=== PATIENT | female | born 1950 | race Caucasian/White ===

== ENCOUNTER → 2019-04-15 16:10 | Outpatient (CLI) | payer OTHER, SELFPAY ==
[2019-04-15 17:20] LABS: Add Manual Diff / Slide Review NO; Basophils Absolute Auto 0 /uL (0-100); Basophils Percent Auto 0.3 % (0-2); Eosinophils Absolute Auto 100 /uL (0-450); Eosinophils Percent Auto 1.3 % (2-4); Hematocrit 35.2 % (36-46); Hemoglobin 11.7 g/dL (12.0-16.0); Lymphocytes Absolute Auto 2200 /uL (1100-4500); Mean Corpuscular HGB Conc 33.2 % (30-36); Mean Corpuscular Hemoglobin 30.8 PG (26-34); Mean Corpuscular Volume 92.9 fL (80-100); Monocytes Absolute Auto 600 /uL (0-900); Monocytes Percent Auto 8.5 % (3-14); Neutrophils Absolute Auto 3700 /uL (1500-7000); Neutrophils Percent Auto 56.9 % (50-75); Platelet Count 287 X10^3/uL (150-400); Red Blood Cell Count 3.79 X10^6/uL (4.0-5.2); Red Cell Distribution Width 13.5 % (11.6-14.8); White Blood Cell Count 6.5 X10^3/uL (4.5-11.0)
[2019-04-15 18:08] LABS: Alanine Aminotransferase 38 IU/L (<35); Albumin Globulin Ratio 1.5 (1.0-2.8); Alkaline Phosphatase 56 U/L (38-126); Aspartate Aminotransferase 44 IU/L (14-36); BUN Creatinine Ratio 18.1 (6-22); Bilirubin Total 0.4 mg/dL (0.2-1.3); Blood Urea Nitrogen 13 mg/dL (7-17); Calcium 9.3 mg/dL (8.4-10.2); Carbon Dioxide 27 mmol/L (22-32); Chloride 105 mmol/L (98-107); Estimated Glomerular Filt Rate > 60.0 mL/min (>60); Globulin 2.6 g/dL (1.7-4.1); Glucose 92 mg/dL (80-110); HEMOLYSIS < 15 (0-50); Potassium 4.4 mmol/L (3.4-5.1); Sodium 139 mmol/L (137-145); Total Protein 6.6 g/dL (6.3-8.2)
[2019-04-15 18:32] LABS: Clostridium Difficile Tox PCR Negative for C. diff
== END ==
PROVIDERS: PCP Internal Medicine; Referring Provider Internal Medicine; Visit Provider Internal Medicine
DX: K52.9 Noninfective gastroenteritis and colitis, unspecified (principal)
CPT/HCPCS: 36415; 80053; 85025; 87493

== ENCOUNTER → 2019-04-21 11:58 | Outpatient (CLI) | payer OTHER, SELFPAY ==
[2019-04-21 13:11] LABS: HEMOLYSIS < 15 (0-50); Iron 63 ug/dL (37-170)
[2019-04-21 13:22] LABS: Percent Iron Saturation 26 % (15-50); Total Iron Binding Capacity 240 ug/dL (265-497); Transferrin 203 mg/dL (206-381)
== END ==
PROVIDERS: PCP Internal Medicine; Referring Provider Internal Medicine; Visit Provider Internal Medicine
DX: D64.9 Anemia, unspecified (principal)
CPT/HCPCS: 36415; 83540; 83550

== ENCOUNTER → 2019-04-25 14:20 | Outpatient (CLI) | payer OTHER, SELFPAY ==
[2019-04-25 16:19] LABS: Thyroid Stimulating Hormone 1.62 uIU/mL (0.47-4.68)
== END ==
PROVIDERS: PCP Internal Medicine; Referring Provider Internal Medicine; Visit Provider Internal Medicine
DX: D64.9 Anemia, unspecified (principal)
CPT/HCPCS: 36415; 84443

== ENCOUNTER → 2019-06-10 08:33 | Outpatient (CLI) | payer OTHER, SELFPAY ==
[2019-06-10 10:11] LABS: Add Manual Diff / Slide Review NO; Basophils Absolute Auto 0 /uL (0-100); Basophils Percent Auto 0.8 % (0-2); Eosinophils Absolute Auto 100 /uL (0-450); Hematocrit 37.1 % (36-46); Hemoglobin 12.6 g/dL (12.0-16.0); Lymphocytes Absolute Auto 2000 /uL (1100-4500); Lymphocytes Percent Auto 41.2 % (25-40); Mean Corpuscular HGB Conc 33.9 % (30-36); Mean Corpuscular Hemoglobin 31.4 PG (26-34); Mean Corpuscular Volume 92.8 fL (80-100); Monocytes Absolute Auto 300 /uL (0-900); Monocytes Percent Auto 7.1 % (3-14); Neutrophils Absolute Auto 2400 /uL (1500-7000); Neutrophils Percent Auto 48.9 % (50-75); Platelet Count 292 X10^3/uL (150-400); Red Cell Distribution Width 13.4 % (11.6-14.8); White Blood Cell Count 4.9 X10^3/uL (4.5-11.0)
[2019-06-10 11:06] LABS: Alanine Aminotransferase 26 IU/L (<35); Albumin 4.5 g/dL (3.5-5.0); Albumin Globulin Ratio 1.6 (1.0-2.8); Alkaline Phosphatase 55 U/L (38-126); Aspartate Aminotransferase 31 IU/L (14-36); Bilirubin Total 0.3 mg/dL (0.2-1.3); Bilirubin Unconjugated 0.3 mg/dL (0.0-1.1); Globulin 2.8 g/dL (1.7-4.1); HEMOLYSIS < 15 (0-50); Total Protein 7.3 g/dL (6.3-8.2)
== END ==
PROVIDERS: PCP Internal Medicine; Referring Provider Internal Medicine; Visit Provider Internal Medicine
DX: D64.9 Anemia, unspecified (principal); R74.8 Abnormal levels of other serum enzymes
CPT/HCPCS: 36415; 80076; 85025

== ENCOUNTER → 2019-06-29 10:56 | Outpatient (CLI) | payer OTHER, SELFPAY ==
[2019-06-30 08:42] LABS: COVID19 Sendout NOT DETECTED (Not Detect)
== END ==
PROVIDERS: PCP Internal Medicine; Visit Provider Physician Assistant
DX: Z01.818 Encounter for other preprocedural examination (principal)
CPT/HCPCS: 87635

== ENCOUNTER 2019-07-02 10:58 | Day surgery (SDC) | payer OTHER, SELFPAY ==
--- NOTE | 2019-07-02 | PATH_ITS ---
[facility] Accession Number: [id number] . 01 Material submitted: . PART A: colon - FLAT POLYP IN COLON AT 30 CM PART B: colon - COLON POLYP AT 25 CM PART C: rectum - COLON POLYP IN RECTUM AT 18 CM . 02 Diagnosis: A. Colon, Flat Polyp At 30 CM, Biopsy: Hyperplastic polyp. . B. Colon, Polyp At 25 CM, Biopsy: Hyperplastic polyp. . C. Colon, Polyp In Rectum At 18 CM, Biopsy: Hyperplastic polyp. [facility] 07/03/2019 1309 Local . 02 Electronically signed: . Daisha Allen MD, Pathologist NPI- [id number] . 01 Gross description: . Part A: FLAT POLYP IN COLON AT 30 CM: Received in formalin is 1 fragment(s) of arrieta, soft tissue measuring 0.3 x 0.3 x 0.3 cm submitted entirely in 1 cassette(s) Part B: COLON POLYP AT 25 CM: Received in formalin is 1 fragment(s) of arrieta, soft tissue measuring 0.3 x 0.2 x 0.2 cm submitted entirely in 1 cassette(s) Part C: COLON POLYP IN RECTUM AT 18 CM: Received in formalin is 1 fragment(s) of arrieta, soft tissue measuring 0.2 x 0.2 x 0.2 cm submitted entirely in 1 cassette(s) /RADHA 07/02/20192051 Local . 02 Pathologist provided ICD-10: K63.5 . 02 CPT . 983156, 668763, 270386 Performed at: [address] [facility], [place], [place] [id number] MD John Tse MD Phone: [phone] Performed at: [facility] [id number] [place] [id number] MD Daisha Allen MD Phone: [phone]
[2019-07-02 11:28] VITALS: BMI 27.8
[2019-07-02 11:42] VITALS: BP 111/76; PULSE 81; RESP 12; TEMP 37.2; O2SAT 98
[2019-07-02] MEDS: SODIUM CHLORIDE 0.9% 1,000 ML 200 ML IV (11:43)
--- NOTE | 2019-07-02 12:15 | PM.PREOP ---
Pre-operative Note COVID-19 COVID-19 status: Negative Result date/Date tested (Pos, Neg/Pending): 06/29/19 Interval Note History & Physical reviewed/Exam performed by Physician: No Changes to H&P: No H&P completed within 30 days and has changed as indicated here:: Due to this patient's anemia, unexplained weight loss, fatigue, and positive cologuard she is high risk for a colon cancer to be found during today's procedure and she is expected to need a prolonged and more complex procedure which may involve endoscopic resection of large cancerous or precancerous lesions. She is expected to be difficult to sedate due to her history of chronic pain from fibromyalgia. These patients tend to require high doses of versed and still can not keep still for the procedure. Because of this I have consulted Dr. Mustafa and asked him to provide monitored anesthesia care for the patient.
--- NOTE | 2019-07-02 13:04 | PM.OP.ENDO ---
Operative Date/Time/Diagnoses Date of procedure: 07/02/19 Time of procedure: 13:04 Pre-op diagnosis: Anemia, fatigue, unexplained weight loss, positive cologuard Post-op diagnosis: other (three flat polyps found at 35cm, 25cm, and 18cm; moderate diverticulosis with thickening of the sigmoid colon) Procedure & Clinicians Study performed: Colonoscopy with cold forceps polypectomy x 3 Same procedure as scheduled: Yes Indications: High risk for colon cancer due to positive cologuard test, anemia, fatigue, unexplained weight loss. Due to this being a high risk colonoscopy with possible prolonged and difficult procedure, as well as her history of fibromyalgia which makes her resistant to sedation, I consulted Dr. Mustafa of anesthesiology 2 provide monitored anesthesia care for the safety of the patient. Surgeon: Ashley Tompkins Procedure Notes SCOAP/Timeout: Performed Procedure in detail: The patient was brought to the room and placed in left lateral decubitus position with all bony prominences padded. A time-out was performed and then the patient was given procedural sedation by Dr. Mustafa. Once adequately sedated, the procedure was begun. A rectal exam was performed revealing [no abnormalities]. The colonoscope was then introduced to the rectum and advanced to the cecum in the usual fashion. []The cecum was identified by the appendiceal orifice, the mucosal tri-fold, and the ileocecal valve. The scope was then retracted while rotating side to side and examining each mucosal fold. [3 flat polyps were found in the rectosigmoid region. One was at 35 cm, 1 was at 25 cm, and 1 was at 18 cm. They were each around 1 cm in size, and were removed with cold forceps.] Moderate diverticulosis was seen throughout the descending and sigmoid colon. At the conclusion of the procedure retroflexion was performed and [small grade 1-2 internal hemorrhoids without stigmata of bleeding were seen]. The scope was then withdrawn from the rectum the procedure was concluded. The patient tolerated the procedure well and was transferred to the PACU in stable condition. Scope withdrawal time: 14 Findings: polyp (Three polyps) Specimen(s): other (Three polyps removed with cold forceps) Complications: none Impression: Three adenomatous appearing polyps. Post-procedure Recommendations: Colonscopy in 5 years (Depending on pathology results) Follow up: as needed Disposition: PACU
[2019-07-02 13:08] VITALS: BP 101/64; PULSE 79; RESP 14; TEMP 37; O2SAT 98
[2019-07-02 13:12] VITALS: BP 107/65; PULSE 79; RESP 13; O2SAT 98
[2019-07-02 13:17] VITALS: BP 116/69; PULSE 77; RESP 15; TEMP 35.8; O2SAT 100
[2019-07-02 13:22] VITALS: BP 112/71; PULSE 69; RESP 12; O2SAT 100
[2019-07-02 13:46] VITALS: BP 115/70; PULSE 62; RESP 16; TEMP 37.2; O2SAT 96
== END 2019-07-02 13:58 | disposition home or self-care (01) ==
PROVIDERS: PCP Internal Medicine; Referring Provider Surgery; Visit Provider Surgery
PROC: 0DJD8ZZ Inspection of Lower Intestinal Tract, Via Natural or Artificial Opening Endoscopic (ICD-10-PCS; CPT 45378; principal; 2019-07-02 14:15)
DX: K63.5 Polyp of colon (principal); D64.9 Anemia, unspecified; M79.7 Fibromyalgia; R63.4 Abnormal weight loss; K57.30 Diverticulosis of large intestine without perforation or abscess without bleeding; K64.0 First degree hemorrhoids; K62.1 Rectal polyp
CPT/HCPCS: 45380; J2704; J3010

== ENCOUNTER → 2019-07-16 13:21 | Outpatient (CLI) | payer OTHER, SELFPAY ==
[2019-07-16 15:10] LABS: Cholesterol 225 mg/dL (140-199); Triglycerides 48 mg/dL (35-150)
[2019-07-16 15:21] LABS: HDL Cholesterol 122 mg/dL (40-60); LDL Cholesterol Calculated 93 mg/dL (<100)
[2019-07-16 17:29] LABS: Hep C Virus Ab w/Reflex Quant NEGATIVE s/c (NEGATIVE)
[2019-07-17 06:36] LABS: SARS CoV19 IgG Negative (Negative)
== END ==
PROVIDERS: PCP Internal Medicine; Referring Provider Internal Medicine; Visit Provider Internal Medicine
DX: Z00.00 Encounter for general adult medical examination without abnormal findings (principal); E11.9 Type 2 diabetes mellitus without complications; Z03.818 Encounter for observation for suspected exposure to other biological agents ruled out
CPT/HCPCS: 36415; 80061; 86769; 86803

== ENCOUNTER → 2019-07-25 14:55 | Outpatient (CLI) | payer OTHER, SELFPAY | PROVIDERS: PCP Internal Medicine; Referring Provider Internal Medicine; Visit Provider Internal Medicine | DX: Z13.820 Encounter for screening for osteoporosis (principal); M81.0 Age-related osteoporosis without current pathological fracture; Z78.0 Asymptomatic menopausal state; E11.9 Type 2 diabetes mellitus without complications | CPT/HCPCS: 77080 ==

== ENCOUNTER → 2020-03-05 12:23 | Outpatient (CLI) | payer MEDICARE, SELFPAY ==
[2020-03-05] MEDS: COVID-19 VACC #1, MRNA(MOD) 100 MCG/0.5 ML VIAL IM (12:32)
== END ==
PROVIDERS: PCP Internal Medicine; Visit Provider Internal Medicine
DX: Z23 Encounter for immunization (principal)
CPT/HCPCS: 0011A; 91301

== ENCOUNTER → 2020-04-02 12:52 | Outpatient (CLI) | payer MEDICARE, SELFPAY ==
[2020-04-02] MEDS: COVID-19 VACC #2, MRNA(MOD) 100 MCG/0.5 ML VIAL IM (12:57)
== END ==
PROVIDERS: PCP Internal Medicine; Visit Provider Internal Medicine
DX: Z23 Encounter for immunization (principal)
CPT/HCPCS: 0012A; 91301

== ENCOUNTER 2020-07-09 12:08 | Emergency (ER) | payer OTHER, SELFPAY ==
[2020-07-09] VITALS (21 sets, daily range): BP systolic 99–153; BP diastolic 58–76; PULSE 70–89; RESP 12–16; TEMP 36.8; O2SAT 95–99; BMI 33.6
--- NOTE | 2020-07-09 12:18 | DI.RAD.S_ITS ---
PROCEDURE: XR CHEST 1V INDICATIONS: chest pain TECHNIQUE: One view of the chest was acquired. COMPARISON: None. FINDINGS: Surgical changes and devices: None. Lungs and pleura: Lungs are clear. No pleural effusions or pneumothorax. Mediastinum: Mediastinal contours appear normal. Heart size is normal. Bones and chest wall: No suspicious bony lesions. Overlying soft tissues appear unremarkable. IMPRESSION: No acute cardiopulmonary abnormalities or focal airspace disease. Dictated by: Javed Rizvi M.D. on 07/09/2020 at 13:19 Approved by: Javed Rizvi M.D. on 07/09/2020 at 13:22
[2020-07-09 12:23] LABS: Add Manual Diff / Slide Review NO; Basophils Absolute Auto 100 /uL (0-100); Basophils Percent Auto 1.1 % (0-2); Eosinophils Absolute Auto 100 /uL (0-450); Eosinophils Percent Auto 1.7 % (2-4); Hematocrit 40.6 % (36-46); Hemoglobin 13.8 g/dL (12.0-16.0); Lymphocytes Absolute Auto 2500 /uL (1100-4500); Lymphocytes Percent Auto 38.5 % (25-40); Mean Corpuscular HGB Conc 33.9 % (30-36); Mean Corpuscular Hemoglobin 31.3 PG (26-34); Mean Corpuscular Volume 92.6 fL (80-100); Monocytes Absolute Auto 500 /uL (0-900); Monocytes Percent Auto 7.6 % (3-14); Neutrophils Absolute Auto 3300 /uL (1500-7000); Neutrophils Percent Auto 51.1 % (50-75); Platelet Count 288 X10^3/uL (150-400); Red Blood Cell Count 4.39 X10^6/uL (4.0-5.2); Red Cell Distribution Width 13.8 % (11.6-14.8); White Blood Cell Count 6.5 X10^3/uL (4.5-11.0)
--- NOTE | 2020-07-09 12:29 | ED.CHESTPAIN ---
HPI - Chest Pain General Chief Complaint: Chest Pain Stated Complaint: upper left chest pain Time Seen by Provider: 07/09/20 12:14 Source: patient Mode of arrival: Ambulatory Limitations: no limitations History of Present Illness HPI narrative: Patient is a 70-year-old non insulin-dependent diabetic here for evaluation of left-sided chest discomfort and left back discomfort. She states she has had this discomfort off and on for at least the past couple weeks if not longer. She states that for the past couple days the symptoms have become more intense and happen more often. She had the discomfort last evening. She woke up this morning and felt like the symptoms had improved somewhat but has worsened since this morning. Does not get worse with palpation or movement. Has no shortness of breath. She states that her discomfort has not seem to change because of exercise. It is happened when she has been sitting and also moving around. She did have a stress test and echocardiogram approximately 2 years ago. She states that this was because she was having some breathing issues in the symptoms that brought her in today are slightly different than that. She is also having other complaints such as swelling of her eyes. She did take aspirin this morning. Related Data Home Medications Medication Instructions Recorded Confirmed lactobacillus combination no.8 3 3,000 mmu cells PO DAILY 06/12/19 07/02/19 billion cell capsule Stress Formula 1 tab PO DAILY 07/02/19 07/02/19 Allergies Allergy/AdvReac Type Severity Reaction Status Date / Time No Known Drug Allergies Allergy Verified 07/02/19 11:25 Review of Systems Constitutional Constitutional: Denies fever(s) and Denies headache(s) Eyes Comments: Swelling around eyes ENT Ears, Nose, Mouth, and Throat: Denies headache(s), Denies neck pain and Denies sore throat Cardiovascular Cardiovascular: Reports chest pain and Denies dyspnea Respiratory Respiratory: Denies dyspnea Gastrointestinal Gastrointestinal: Denies abdominal pain, Denies nausea and Denies vomiting Musculoskeletal Musculoskeletal: Denies neck pain Integumentary/Breasts Skin/Breast: Denies rash Neurologic Neurologic: Denies behavioral changes and Denies headache(s) Psychiatric Psychiatric: Reports system reviewed and no additional complaints, except as documented and Denies behavioral changes Endocrine Endocrine: Reports system reviewed and no additional complaints, except as documented Hematologic/Lymphatic On Anticoagulants: No Allergic/Immunologic Allergic/Immunologic: Reports system reviewed and no additional complaints, except as documented Patient History Medical History Arthritis Constipation Fibromyalgia Prediabetes Skin cancer Social History Smoking Status: Former smoker alcohol intake: current Smoking Status: Former smoker alcohol intake frequency: 0-2 drinks per day Substance Use Type: does not use Exam Initial Vital Signs Initial Vital Signs: Vital Signs Temperature 98.2 F 07/09/20 12:16 Pulse Rate 89 07/09/20 12:16 Respiratory Rate 16 07/09/20 12:16 Blood Pressure 153/70 H 07/09/20 12:16 Pulse Oximetry 97 07/09/20 12:16 Const General: cooperative and comfortable Limitations: mental status not altered HENMT Head: normal to inspection and normocephalic Eyes General: appearance normal, both eyes and all related structures Periorbital: periorbital findings normal Chest Chest: No crepitus and No tenderness Resp Effort & Inspection: normal respiratory effort Auscultation: clear to auscultation bilaterally Cardio Rate: regular rate Rhythm: regular rhythm GI Inspection: non-distended Palpation: soft, No firm and No tender Skin Lesions: no lesions Rashes: no rashes Neuro General: patient alert, patient awake and patient oriented x3 Cognition: normal cognition Speech: speech normal Extrem General: normal to inspection and capillary refill normal Psych Appearance: grossly normal and well kempt Scores HEART Score Heart Score history: Moderately Suspicious Heart Score EKG: Non-Specific repolarization disturbance Heart Score Age: > or = 65 years old Heart Score risk factors: 1-2 risk factors Heart Score troponin: < or = to normal limit Heart Score Total: 5 Course Orders Ordered: ED Orders 07/09/20 12:18 XR chest 1V Stat EKG-12 Lead Stat 07/09/20 12:20 Complete Blood Count AUTO DIFF Stat Comprehensive Metabolic Panel Stat Lipase Stat Troponin & CK Cardiac Panel Stat 07/09/20 13:25 COVID19 - ADMIT (STRIKER OUT swab/PCR) Stat Nitroglycerin (Nitroglycerin 0.4 Mg Sl Tab) 0.4 mg SL [id number] PRN PRN Reason: Chest Pain Last Admin: 07/09/20 13:08 Dose: 0.4 mg Documented by: Admin: 07/09/20 12:41 Dose: 0.4 mg Documented by: JERMAINE Discontinued Medications Aspirin (Aspirin 81 Mg Chew Tab) 324 mg PO NOW ONE Stop: 07/09/20 12:21 Last Admin: 07/09/20 12:35 Dose: Not Given Documented by: JERMAINE Vital Signs Vital signs: Vital Signs - 8 hr 07/09/20 12:16 07/09/20 12:19 07/09/20 12:30 Temperature 98.2 F Pulse Rate 89 82 80 Respiratory Rate 16 16 Blood Pressure 153/70 H Pulse Oximetry 97 99 96 07/09/20 12:38 07/09/20 12:41 07/09/20 13:00 Temperature Pulse Rate 79 76 79 Respiratory Rate 15 12 Blood Pressure 116/66 116/66 118/60 Pulse Oximetry 97 95 07/09/20 13:08 07/09/20 13:20 07/09/20 13:30 Temperature Pulse Rate 77 85 87 Respiratory Rate 13 14 Blood Pressure 118/66 111/71 107/67 Pulse Oximetry 95 95 07/09/20 14:00 07/09/20 14:01 07/09/20 14:30 Temperature Pulse Rate 84 86 76 Respiratory Rate 15 14 12 Blood Pressure 128/58 L 102/61 Pulse Oximetry 95 95 96 07/09/20 15:00 Temperature Pulse Rate 75 Respiratory Rate 12 Blood Pressure Pulse Oximetry 98 MDM - Chest Pain Lab Data Attestation: I reviewed the patient's lab results. Result diagrams: 07/09/20 12:20 07/09/20 12:20 Labs: Lab Results 07/09/20 07/09/20 07/09/20 Range/Units 12:20 12:20 13:25 WBC 6.5 (4.5-11.0) X10^3/uL RBC 4.39 (4.0-5.2) X10^6/uL Hgb 13.8 (12.0-16.0) g/dL Hct 40.6 (36-46) % MCV 92.6 (80-100) fL MCH 31.3 (26-34) PG MCHC 33.9 (30-36) % RDW 13.8 (11.6-14.8) % Plt Count 288 (150-400) X10^3/uL Neut % (Auto) 51.1 (50-75) % Lymph % (Auto) 38.5 (25-40) % [place] % (Auto) 7.6 (3-14) % Eos % (Auto) 1.7 L (2-4) % Baso % (Auto) 1.1 (0-2) % Neut # (Auto) 3300 (1917-7816) /uL Lymph # (Auto) 2500 (5631-3503) /uL [place] # (Auto) 500 (0-900) /uL Eos # (Auto) 100 (0-450) /uL Baso # (Auto) 100 (0-100) /uL Sodium 137 (137-145) mmol/L Potassium 4.4 (3.4-5.1) mmol/L Chloride 103 (98-107) mmol/L Carbon Dioxide 25 (22-32) mmol/L BUN 27 H (7-17) mg/dL Creatinine 0.82 (0.52-1.04) mg/dL Estimated GFR > 60.0 (>60) mL/min BUN/Creatinine Ratio 32.9 H (6-22) Glucose 115 H (80-110) mg/dL Calcium 10.0 (8.4-10.2) mg/dL Total Bilirubin 0.4 (0.2-1.3) mg/dL AST 37 H (14-36) IU/L ALT 27 (<35) IU/L Alkaline Phosphatase 62 (38-126) U/L Total Creatine Kinase 118 (30-135) U/L CK-MB (CK-2) 1.65 (<2.37) ng/mL CK-MB (CK-2) Rel Index 1.4 L (1.5-5.0) % Troponin I < 0.012 (0.01-0.034) ng/mL Total Protein 8.3 H (6.3-8.2) g/dL Albumin 4.9 (3.5-5.0) g/dL Globulin 3.4 (1.7-4.1) g/dL Albumin/Globulin Ratio 1.4 (1.0-2.8) Lipase 173 (23-300) U/L SARS-CoV-2 (PCR) Negative (Negative) Imaging Data Chest x-ray: Radiologist's Impression: [address] [id number] ReportSigned Patient: Bonnie Thayer LMR#: [id number]: 3Acct:[id number]/Sex: 70 / FDate of Service: 07/09/20Loc: EDAccession Number: [id number] Procedure: XR chest 1V Ordering Provider: Jeff Aden D.O. PROCEDURE: XR CHEST 1V INDICATIONS: chest pain TECHNIQUE: One view of the chest was acquired. COMPARISON: None. FINDINGS: Surgical changes and devices: None. Lungs and pleura: Lungs are clear. No pleural effusions or pneumothorax. Mediastinum: Mediastinal contours appear normal. Heart size is normal. Bones and chest wall: No suspicious bony lesions. Overlying soft tissues appear unremarkable. IMPRESSION: No acute cardiopulmonary abnormalities or focal airspace disease. Dictated by: Javed Rizvi M.D. on 07/09/2020 at 13:19 Approved by: Javed Rizvi M.D. on 07/09/2020 at 13:22 ECG Data Attestation: I personally reviewed and interpreted this ECG as follows: Prior ECG tracings: not available for review Interpretation: Sinus rhythm Ventricular rate 86 Incomplete right bundle-branch block Normal QRS Normal QTC Nonspecific ST T wave changes MDM Narrative Medical decision making narrative: Patient is asymptomatic after 2 nitroglycerin. She has a heart score of 5. Has nonspecific changes on the EKG. Troponin is negative. Given her presentation and her heart score I do feel that admission to the hospital for risk stratification testing is warranted. Unfortunately we are unable to provide stress testing over the weekend here at this facility. I discussed the case with Dr. Sweeney with Cardiology at [facility] who stated that their service would be happy to consult if the hospitalist service at the facility needed them to. I then discussed the case with Dr. Potter with Internal Medicine who accepts the patient in transport. I did discuss the transport with the patient. Discussed the need for this. She expressed understanding. Patient is stable for transport. Discharge Plan Departure Patient Disposition: [facility] Clinical Impression: Chest pain Prescriptions: No Action Adult Probiotic 3 billion cell capsule 3,000 mmu cells PO DAILY RF: 0 Stress Formula Tablet 1 tab PO DAILY RF: 0 Referrals: Usman Lemons MD [Primary Care Provider] -
[2020-07-09 12:34] LABS: Alanine Aminotransferase 27 IU/L (<35); Albumin 4.9 g/dL (3.5-5.0); Albumin Globulin Ratio 1.4 (1.0-2.8); Alkaline Phosphatase 62 U/L (38-126); Aspartate Aminotransferase 37 IU/L (14-36); BUN Creatinine Ratio 32.9 (6-22); Bilirubin Total 0.4 mg/dL (0.2-1.3); Blood Urea Nitrogen 27 mg/dL (7-17); Carbon Dioxide 25 mmol/L (22-32); Chloride 103 mmol/L (98-107); Creatine Kinase 118 U/L (30-135); Estimated Glomerular Filt Rate > 60.0 mL/min (>60); Globulin 3.4 g/dL (1.7-4.1); Glucose 115 mg/dL (80-110); HEMOLYSIS < 15 (0-50); Lipase 173 U/L (23-300); Potassium 4.4 mmol/L (3.4-5.1); Sodium 137 mmol/L (137-145); Total Protein 8.3 g/dL (6.3-8.2)
[2020-07-09] MEDS: NITROGLYCERIN 0.4 MG SL TAB SL ×2 (12:41→13:08)
[2020-07-09 12:45] LABS: Troponin I < 0.012 ng/mL (0.01-0.034)
--- NOTE | 2020-07-09 13:09 | PC.NURSE ---
Patient reports Pain decreased from 4/10 to 2/10 in left chest after 1st dose of nitro. Given 2nd dose at this time.
[2020-07-09 13:14] LABS: CKMB % Relative Index 1.4 % (1.5-5.0); Creatine Kinase MB 1.65 ng/mL (<2.37)
[2020-07-09 14:19] LABS: COVID19 - ADMIT (NP swab/PCR) Negative (Negative)
--- NOTE | 2020-07-09 15:16 | PC.NURSE ---
[id number] patient reports pain is gone after second nitro tab.
--- NOTE | 2020-07-09 17:43 | PC.NURSE ---
Report given to Regina LORENZ at [facility].
== END 2020-07-09 18:23 | disposition short-term general hospital (02) ==
PROVIDERS: Emergency Provider Emergency Medicine; PCP Internal Medicine
DX: R07.9 Chest pain, unspecified (principal); Z20.822 Contact with and (suspected) exposure to COVID-19
CPT/HCPCS: 36415; 71045; 80053; 82550; 82553; 83690; 84484; 85025; 87635; 93005; 99284; C9803

== ENCOUNTER → 2021-10-06 14:33 | Outpatient (CLI) | payer OTHER, SELFPAY ==
[2021-10-06 15:16] LABS: Hematocrit 37.1 % (36-46); Hemoglobin 12.4 g/dL (12.0-16.0); Mean Corpuscular HGB Conc 33.3 % (30-36); Mean Corpuscular Hemoglobin 30.7 PG (26-34); Mean Corpuscular Volume 92.3 fL (80-100); Platelet Count 258 X10^3/uL (150-400); Red Blood Cell Count 4.02 X10^6/uL (4.0-5.2); White Blood Cell Count 4.7 X10^3/uL (4.5-11.0)
[2021-10-06 15:31] LABS: Hemoglobin A1C% w Est Avg Glu 5.6 % (4.0-6.0)
[2021-10-06 16:10] LABS: Alanine Aminotransferase 26 IU/L (<35); Albumin 4.3 g/dL (3.5-5.0); Albumin Globulin Ratio 1.4 (1.0-2.8); Alkaline Phosphatase 56 U/L (38-126); Aspartate Aminotransferase 31 IU/L (14-36); BUN Creatinine Ratio 25.4 (6-22); Bilirubin Total 0.4 mg/dL (0.2-1.3); Blood Urea Nitrogen 18 mg/dL (7-17); Carbon Dioxide 27 mmol/L (22-32); Chloride 103 mmol/L (98-107); Cholesterol 256 mg/dL (140-199); Estimated Glomerular Filt Rate > 60 mL/min (>60); Glucose 87 mg/dL (80-110); HEMOLYSIS < 15 (0-50); Potassium 4.2 mmol/L (3.4-5.1); Sodium 138 mmol/L (137-145); Total Protein 7.3 g/dL (6.3-8.2); Triglycerides 56 mg/dL (35-150)
[2021-10-06 16:27] LABS: Creatinine Urine Random 74.6 mg/dL
[2021-10-06 16:28] LABS: HDL Cholesterol 155 mg/dL (40-60); LDL Cholesterol Calculated 90 mg/dL (<100)
[2021-10-06 16:36] LABS: TSH w/ Reflex to FT4 1.14 uIU/mL (0.47-4.68)
[2021-10-06 16:41] LABS: Microalbumin Urine Random < 0.6 mg/dL (0-1.6)
== END ==
PROVIDERS: PCP Internal Medicine; Referring Provider Internal Medicine; Visit Provider Internal Medicine
DX: E11.69 Type 2 diabetes mellitus with other specified complication (principal); E78.2 Mixed hyperlipidemia; E78.5 Hyperlipidemia, unspecified; R79.89 Other specified abnormal findings of blood chemistry
CPT/HCPCS: 36415; 80053; 80061; 82043; 82570; 83036; 84443; 85027

== ENCOUNTER → 2021-10-18 12:40 | Outpatient (CLI) | payer OTHER, SELFPAY ==
--- NOTE | 2021-10-18 12:41 | DI.MG.S_ITS ---
BILATERAL DIGITAL SCREENING MAMMOGRAM 3D/2D WITH CAD: 10/18/2021 CLINICAL: Routine screening. Family history of breast cancer. Comparison is made to exams dated: 02/21/2019 mammogram - [facility] [place], 11/16/2016 mammogram, 11/04/2015 mammogram - [facility], and 03/13/2019 mammogram - [facility] [place]. Both breasts are heterogeneously dense, which may obscure small masses (category c / 51-75% glandular tissue). Current study was also evaluated with a Computer Aided Detection (CAD) system. No significant masses, calcifications, or other findings are seen in either breast. There has been no significant interval change. IMPRESSION: NEGATIVE There is no mammographic evidence of malignancy. A 1 year screening mammogram is recommended. This exam was interpreted at Station ID: [id number]. NOTE: For mammograms, a report in lay terms will be sent to the patient. Approximately 15% of breast malignancies will not be visualized mammographically. In the management of a palpable breast mass, a negative mammogram must not discourage biopsy of a clinically suspicious lesion. Electronically Signed By: Ebeenzer antunez/nikolas:10/18/2021 16:41:25 letter sent: Normal Exam ACR BI-RADS Category 1: Negative [id number]
== END ==
PROVIDERS: PCP Internal Medicine; Referring Provider Internal Medicine; Visit Provider Internal Medicine
DX: M81.0 Age-related osteoporosis without current pathological fracture (principal); Z12.31 Encounter for screening mammogram for malignant neoplasm of breast; M85.89 Other specified disorders of bone density and structure, multiple sites
CPT/HCPCS: 77063; 77067; 77080

== ENCOUNTER → 2022-05-03 10:41 | Outpatient (CLI) | payer OTHER, SELFPAY ==
[2022-05-03 11:28] LABS: Creatinine Urine Random 104.7 mg/dL
[2022-05-03 11:33] LABS: Microalbumi Creatinin Ratio Ur 7.6 ug/mg CR (<30); Microalbumin Urine Random 0.8 mg/dL (0-1.6)
[2022-05-03 12:18] LABS: BUN Creatinine Ratio 24.1 (6-22); Blood Urea Nitrogen 19 mg/dL (7-17); Calcium 9.2 mg/dL (8.4-10.2); Carbon Dioxide 30 mmol/L (22-32); Chloride 102 mmol/L (98-107); Estimated Glomerular Filt Rate > 60 mL/min (>60); Glucose 91 mg/dL (80-110); HEMOLYSIS < 15 (0-50); Potassium 4.3 mmol/L (3.4-5.1); Sodium 137 mmol/L (137-145)
[2022-05-04 08:09] LABS: Labcorp Hemoglobin (Hb) A1c 5.6 % (4.8-5.6)
== END ==
PROVIDERS: PCP Internal Medicine; Referring Provider Internal Medicine; Visit Provider Internal Medicine
DX: E78.5 Hyperlipidemia, unspecified (principal); E11.69 Type 2 diabetes mellitus with other specified complication
CPT/HCPCS: 36415; 80048; 82043; 82570; 83036

== ENCOUNTER → 2022-12-27 10:39 | Outpatient (CLI) | payer OTHER, SELFPAY ==
[2022-12-27 12:25] LABS: Hemoglobin A1C% w Est Avg Glu 5.6 % (4.0-6.0)
[2022-12-27 12:50] LABS: Aspartate Aminotransferase 25 IU/L (14-36); BUN Creatinine Ratio 24.4 (6-22); Blood Urea Nitrogen 19 mg/dL (7-17); Calcium 9.9 mg/dL (8.4-10.2); Carbon Dioxide 28 mmol/L (22-32); Chloride 102 mmol/L (98-107); Cholesterol 287 mg/dL (140-199); Estimated Glomerular Filt Rate > 60 mL/min (>60); Glucose 94 mg/dL (80-110); HEMOLYSIS < 15 (0-50); Potassium 4.3 mmol/L (3.4-5.1); Sodium 137 mmol/L (137-145); Triglycerides 57 mg/dL (35-150)
[2022-12-27 12:57] LABS: HDL Cholesterol 146 mg/dL (40-60); LDL Cholesterol Calculated 130 mg/dL (<100)
[2022-12-27 16:02] LABS: Creatinine Urine Random 257.4 mg/dL
[2022-12-27 16:07] LABS: Microalbumi Creatinin Ratio Ur 4.6 ug/mg CR (<30); Microalbumin Urine Random 1.2 mg/dL (0-1.6)
== END ==
PROVIDERS: PCP Internal Medicine; Referring Provider Internal Medicine; Visit Provider Internal Medicine
DX: E78.2 Mixed hyperlipidemia (principal); E11.69 Type 2 diabetes mellitus with other specified complication; E78.5 Hyperlipidemia, unspecified
CPT/HCPCS: 36415; 80048; 80061; 82043; 82570; 83036; 84450

== ENCOUNTER → 2023-01-04 08:47 | Outpatient (CLI) | payer OTHER, SELFPAY ==
--- NOTE | 2023-01-04 | DI.MG.S_ITS ---
BILATERAL DIGITAL SCREENING MAMMOGRAM 3D/2D WITH CAD: 01/04/2023 CLINICAL: Routine screening. Family history of breast cancer. Comparison is made to exams dated: 10/18/2021 mammogram - [facility], 03/13/2019 mammogram, 02/21/2019 mammogram - [facility], and 11/16/2016 mammogram - [facility]. Both breasts are heterogeneously dense, which may obscure small masses (category c / 51-75% glandular tissue). Current study was also evaluated with a Computer Aided Detection (CAD) system. No significant masses, calcifications, or other findings are seen in either breast. IMPRESSION: NEGATIVE There is no mammographic evidence of malignancy. A 1 year screening mammogram is recommended. Based on the Tyrer Cuzick model (a risk assessment model) the patient's lifetime risk is 16.4% and her 10 year risk is 10.6%. According to the ACR, ACS, and NCCN guidelines, an annual breast MRI exam along with mammogram is recommended if the patient's lifetime risk is 20% or greater. This exam was interpreted at Station ID: [id number]. NOTE: For mammograms, a report in lay terms will be sent to the patient. Approximately 15% of breast malignancies will not be visualized mammographically. In the management of a palpable breast mass, a negative mammogram must not discourage biopsy of a clinically suspicious lesion. Electronically Signed By: Sylvia Mullen M.D., PH.D dionne/[email or web address]:01/05/2023 09:21:52 letter sent: Normal Exam ACR BI-RADS Category 1: Negative 3341F
== END ==
PROVIDERS: PCP Internal Medicine; Referring Provider Internal Medicine; Visit Provider Internal Medicine
DX: Z12.31 Encounter for screening mammogram for malignant neoplasm of breast (principal); Z80.3 Family history of malignant neoplasm of breast
CPT/HCPCS: 77063; 77067